=== PATIENT | male | born 1955 | race Caucasian/White ===

== ENCOUNTER 2017-10-12 16:44 | Emergency (ER) | payer OTHER ==
[2017-10-12 17:30] VITALS: BP 142/86
--- NOTE | 2017-10-12 17:36 | UC ---
Throat Pain/Nasal Blayne HPI - HPI Summary HPI Summary: Pt presents with 1 week of sinus pain/pressure/congestion and frontal headache. He also has noticed some right ear pain over the last 2 days. Has not taken anything OTC. Denies fever, chills, cough, SOB, chest pain, abdominal pain, n/v/ d/c. - History of Current Complaint Chief Complaint: UCGeneralIllness Stated Complaint: SINUSES,EAR PAIN Time Seen by Provider: 10/12/17 17:36 Hx Obtained From: Patient Onset/Duration: Gradual Onset Severity: Mild Pain Intensity: 3 Pain Scale Used: 0-10 Numeric - Allergies/Home Medications Allergies/Adverse Reactions: Allergies Allergy/AdvReac Type Severity Reaction Status Date / Time No Known Allergies Allergy Verified 10/12/17 17:29 PMH/Surg Hx/FS Hx/Imm Hx Previously Healthy: Yes - Surgical History Surgical History: None - Family History Known Family History: Positive: Unknown - Social History Occupation: Employed Full-time Lives: With Family Alcohol Use: None Substance Use Type: None Smoking Status (MU): Never Smoked Tobacco Review of Systems Constitutional: Negative Skin: Negative Eyes: Negative ENT: Ear Ache, Nasal Discharge, Sinus Congestion, Sinus Pain/Tenderness Respiratory: Negative Cardiovascular: Negative Gastrointestinal: Negative Motor: Negative Neurovascular: Negative Musculoskeletal: Negative Neurological: Headache Psychological: Negative All Other Systems Reviewed And Are Negative: Yes Physical Exam - Summary Physical Exam Summary: GENERAL: NAD. WDWN HEENT: NC/AT. Conjunctiva clear without inflammation or discharge. EOMI. Right TM occluded by cerumen. Left TM intact, no bulging, erythema, or edema. Nasal mucosa mildly erythematous with clear discharge. Mild TTP frontal sinus. Posterior oropharynx without exudates, erythema, or tonsillar enlargement. Uvula midline. NECK: Supple without lymphadenopathy CHEST: CTAB. No r/r/w. No accessory muscle use. Breathing comfortably and in no distress. CV: RRR. Without m/r/g. Pulses intact. SKIN: No rash or erythema noted. NEURO: Alert. CN II-XII grossly intact. PSYCH: Age appropriate behavior. Triage Information Reviewed: Yes Vital Signs: Initial Vital Signs Temp 98.5 F 10/12/17 17:25 Pulse 72 10/12/17 17:25 Resp 18 10/12/17 17:25 BP 142/86 10/12/17 17:25 Pulse Ox 99 10/12/17 17:25 Throat Pain/Nasal Course/Dx - Course Course Of Treatment: Sinusitis requesting antibiotic therapy. Will rx for azithromycin. - Differential Dx/Diagnosis Provider Diagnoses: Sinusitis Discharge - Sign-Out/Discharge Documenting (check all that apply): Discharge - Discharge Plan Condition: Stable Disposition: HOME Prescriptions: Azithromycin TAB* [Zithromax TAB (Z-BRYANT) 250 mg #6 tabs] 2 tab PO .TODAY, THEN 1 DAILY #1 bryant Patient Education Materials: Sinusitis (ED) Referrals: Sam Mc DO [Primary Care Provider] - Additional Instructions: If you develop a fever, shortness of breath, chest pain, new or worsening symptoms - please call your PCP or go to the ED. Your blood pressure was high at todays visit. Please see your primary provider within 4 weeks for recheck and re-evaluation. - Billing Disposition and Condition Condition: STABLE Disposition: HOME
== END 2017-10-12 17:48 | disposition home or self-care (01) ==
LOC: UCCORT 16:44
DX: J32.9 Chronic sinusitis, unspecified (principal)
CPT/HCPCS: 99212; G0463